=== PATIENT | male | born 1955 | race Caucasian/White ===

== ENCOUNTER 2019-05-16 09:07 | Outpatient (CLI) | payer BC ==
--- NOTE | 2019-05-16 10:13 | ULT ---
Abdominal ultrasound: 05/16/2019 HISTORY: Left-sided flank pain TECHNIQUE: Multiplanar grayscale sonographic imaging of the abdomen obtained. FINDINGS: Imaged pancreas grossly unremarkable, partially obscured by bowel gas. Imaged portions of t he IVC and aorta appear within normal limits, also partially obscured by bowel gas. There is no focal liver lesion or evidence of intrahepatic biliary dilatation. No gallbladder wall thickening or pericholecystic fluid. No gallstones are noted. The housecleaner rep orts a negative Sanchez's sign. The common bile duct measures 3 mm, within normal limits. The right kidney measures 12.0 cm in craniocaudal dimension. There is a lower pole right renal cyst m easuring 1.8 cm. No hydronephrosis noted on either side. Left kidney measures 10.3 cm in craniocaudal dimension. Spleen measures up to 10.3 cm, within normal limits. IMPRESSION: No acute findings.
== END 2019-05-16 09:08 | disposition home or self-care (01) ==
LOC: ULT 09:07
PROVIDERS: ATTEND Physician Assistant Medical
DX: R10.32 Left lower quadrant pain (principal)
CPT/HCPCS: 93975

== ENCOUNTER 2021-10-23 13:22 | Outpatient (CLI) | payer BC, MEDICARE | END 2021-10-23 13:23 | disposition home or self-care (01) | LOC: BICCT 13:22 | PROVIDERS: ATTEND Surgery | DX: M50.00 Cervical disc disorder with myelopathy, unspecified cervical region (principal); M48.02 Spinal stenosis, cervical region | CPT/HCPCS: 72125 ==

== ENCOUNTER 2021-11-19 11:37 | Outpatient (CLI) | payer BC, MEDICARE ==
[2021-11-19 13:46] LABS: Hemoglobin 15.3 g/dL (13.5-17.5); Mean Corpuscular HGB CONC 34.7 g/dL (32.0-36.0); Mean Corpuscular Hemoglobin 31.6 pg (27.0-33.0); Mean Corpuscular Volume 91.1 fl (81.2-95.1); Mean Platelet Volume 10.6 fl (7.4-10.4); Platelet Count 220 10x3/uL (150-450); RBC Distribution Width 15.3 % (11.5-14.5); Red Blood Cell (RBC) Count 4.84 10x6/uL (4.32-5.72); White Blood Cell (WBC) Count 5.5 10x3/uL (3.5-10.5)
[2021-11-19 13:57] LABS: PTT 26.8 sec (22.0-33.0); Prothrombin Time 10.6 sec (9.5-12.1)
[2021-11-19 14:00] LABS: Anion Gap 16 mmol/L (10-20); BUN (Urea Nitrogen) 13 mg/dL (8.4-25.7); Calc. Creatinine Clearance 0 mL/min (70-130); Calcium 9.9 mg/dL (7.8-10.44); Carbon Dioxide 26 mmol/L (23-31); Chloride 102 mmol/L (98-107); Estimated GFR 95; Glucose 105 mg/dL (80-115); Sodium 139 mmol/L (136-145)
== END 2021-11-19 11:38 | disposition home or self-care (01) ==
LOC: LABBT 11:37
PROVIDERS: ATTEND Surgery
DX: Z01.818 Encounter for other preprocedural examination (principal); M50.00 Cervical disc disorder with myelopathy, unspecified cervical region; M50.10 Cervical disc disorder with radiculopathy, unspecified cervical region; M48.02 Spinal stenosis, cervical region; Z20.822 Contact with and (suspected) exposure to COVID-19
CPT/HCPCS: 80048; 85027; 85610; 85730; 86850; 86900; 86901; 87811; 93005; 93010

== ENCOUNTER 2021-11-19 11:45 | Inpatient (IN) | payer BC, MEDICARE ==
[2021-11-19 13:46] LABS: Hemoglobin 15.3 g/dL (13.5-17.5); Mean Corpuscular HGB CONC 34.7 g/dL (32.0-36.0); Mean Corpuscular Hemoglobin 31.6 pg (27.0-33.0); Mean Corpuscular Volume 91.1 fl (81.2-95.1); Mean Platelet Volume 10.6 fl (7.4-10.4); Platelet Count 220 10x3/uL (150-450); RBC Distribution Width 15.3 % (11.5-14.5); Red Blood Cell (RBC) Count 4.84 10x6/uL (4.32-5.72); White Blood Cell (WBC) Count 5.5 10x3/uL (3.5-10.5)
[2021-11-19 13:57] LABS: PTT 26.8 sec (22.0-33.0); Prothrombin Time 10.6 sec (9.5-12.1)
[2021-11-19 14:00] LABS: Anion Gap 16 mmol/L (10-20); BUN (Urea Nitrogen) 13 mg/dL (8.4-25.7); Calc. Creatinine Clearance 0 mL/min (70-130); Calcium 9.9 mg/dL (7.8-10.44); Carbon Dioxide 26 mmol/L (23-31); Chloride 102 mmol/L (98-107); Estimated GFR 95; Glucose 105 mg/dL (80-115); Sodium 139 mmol/L (136-145)
[2021-11-20 11:49] VITALS: BMI 32.3
[2021-11-24] MEDS ORDERED: Bacitracin Zinc Ointment 30 gm TUBE ONE (09:23)
[2021-11-24] MEDS ORDERED: Thrombin 5000 UNITS/5 ML VIAL ONE (09:23)
[2021-11-24] MEDS ORDERED: Midazolam HCl 2 mg/2 ml Vial ONE (09:34)
[2021-11-24] MEDS ORDERED: fentaNYL Citrate/PF 100 MCG/2 ML SYRINGE ONE (09:34)
[2021-11-24] MEDS ORDERED: HYDROmorphone 2 MG/ML VIAL ONE ×2 (09:34→12:21)
[2021-11-24] MEDS ORDERED: CEFAZOLIN 2 GM VIAL ONE (09:36)
[2021-11-24] MEDS ORDERED: Sodium Chloride 0.9% 0 ML ONE (09:36)
[2021-11-24] MEDS ORDERED: Phenylephrine 10 MG/ML VIAL ONE (09:58)
[2021-11-24] MEDS ORDERED: Ondansetron PF 4 MG/2 ML Vial ONE (09:58)
[2021-11-24] MEDS ORDERED: ePHEDrine 50 MG/ML VIAL ONE (09:58)
[2021-11-24] MEDS ORDERED: Glycopyrrolate 0.2 MG/ML 5 ML SYRINGE ONE (09:58)
[2021-11-24] MEDS ORDERED: diphenhydrAMINE 50 MG/ML VIAL ONE (09:58)
[2021-11-24] MEDS ORDERED: Dexamethasone 20 MG/5 ML VIAL ONE (09:58)
[2021-11-24] MEDS ORDERED: PROPOFOL 200 MG/20 ML VIAL ONE (09:58)
[2021-11-24] MEDS ORDERED: Lidocaine 1% PF 5 ML VIAL ONE (09:58)
[2021-11-24] MEDS ORDERED: Rocuronium Bromide 10 MG/ML (10ML VIAL) ONE (09:58)
[2021-11-24] MEDS ORDERED: Rocuronium Bromide 50 MG/5 ML VIAL ONE ×2 (11:58→13:44)
[2021-11-24] MEDS ORDERED: Ondansetron PF 4 MG/2 ML Vial IVP PRN (15:39)
[2021-11-24] MEDS ORDERED: Acetaminophen 325 MG TAB PO PRN (15:39)
[2021-11-24] MEDS ORDERED: Chloraseptic Spray 180 ml Bottle PO PRN (15:40)
[2021-11-24] MEDS ORDERED: Promethazine HCl 12.5 MG in Sodium Chloride 0.9% 50 ML IVPB PRN (15:40)
[2021-11-24] MEDS ORDERED: Diazepam 5 MG TAB PO PRN (15:40)
[2021-11-24] MEDS ORDERED: Bisacodyl 5 MG TAB PO PRN (15:40)
[2021-11-24] MEDS ORDERED: Cepastat Lozenges 1 LOZ PO PRN (15:40)
[2021-11-24] MEDS ORDERED: Polyethylene Glycol 3350 17 GM Packet PO PRN (15:40)
[2021-11-24] MEDS ORDERED: fentaNYL Citrate/PF 2,000 MCG in Sodium Chloride 0.9% 60 ML IV PRN ×2 (15:42→16:37)
[2021-11-24] MEDS ORDERED: hydrALAZINE 20 MG/ML VIAL SLOW IVP PRN (15:44)
[2021-11-24] MEDS ORDERED: Promethazine HCl 25 MG/ML VIAL IVPB PRN (15:50)
[2021-11-24] MEDS ORDERED: Morphine Sulfate 2 MG/ML SYRINGE SLOW IVP PRN (15:50)
[2021-11-24] MEDS ORDERED: HYDROmorphone 2 MG/ML VIAL SLOW IVP PRN (15:50)
[2021-11-24] MEDS ORDERED: PACU-Morphine 4MG/ML VIAL SLOW IVP PRN (15:50)
[2021-11-24] MEDS ORDERED: Promethazine HCl 25 MG/ML VIAL IM PRN (15:50)
[2021-11-24] MEDS ORDERED: Ondansetron HCl/PF 4 MG/2 ML Vial IVP PRN (15:50)
[2021-11-24] MEDS ORDERED: Fentanyl 100 MCG/2 ML VIAL ONE ×2 (15:55→17:01)
[2021-11-24] MEDS: Sodium Chloride 0.9% 1,000 ML IV SCH (18:43)
[2021-11-24] MEDS: Docusate 100 MG CAP PO SCH (20:31)
[2021-11-24] MEDS: metFORMIN 500 MG TAB PO SCH (20:31)
[2021-11-24] MEDS: Montelukast Sodium 10 mg Tablet PO SCH (20:31)
[2021-11-24] MEDS: Atorvastatin Calcium 10 MG TAB PO SCH (20:31)
[2021-11-24] MEDS: CEFAZOLIN 2 GM in Sodium Chloride 0.9% 100 ML IVPB SCH (20:32)
[2021-11-25] MEDS: CEFAZOLIN 2 GM in Sodium Chloride 0.9% 100 ML IVPB SCH ×3 (01:09→17:56)
[2021-11-25] MEDS: Sodium Chloride 0.9% 1,000 ML IV SCH ×2 (05:25→14:40)
[2021-11-25 06:16] LABS: #Lymphocytes 0.6 thou/uL (1.20-3.40); %Basophils 0.1 % (0.0-1.0); %Eosinophils 0.1 % (0.0-10.0); %Lymphocytes 4.9 % (21.0-51.0); %Monocytes 7.9 % (0.0-10.0); Hemoglobin 12.5 g/dL (14.0-18.0); Mean Corpuscular Hemoglobin 31.3 pg (27.0-31.0); Mean Corpuscular Volume 94.8 fL (78.0-98.0); Mean Platelet Volume 8.2 fL (7.4-10.4); Platelet Count 168 thou/uL (130-400); RBC Distribution Width 13.5 % (11.5-14.5); Red Blood Cell (RBC) Count 3.99 mill/uL (4.70-6.10); White Blood Cell (WBC) Count 12.6 thou/uL (4.8-10.8)
[2021-11-25 06:36] LABS: Anion Gap 13 mmol/L (10-20); BUN (Urea Nitrogen) 9 mg/dL (8.4-25.7); Calc. Creatinine Clearance 123 mL/min (70-130); Carbon Dioxide 24 mmol/L (23-31); Chloride 103 mmol/L (98-107); Sodium 136 mmol/L (136-145)
[2021-11-25 06:37] LABS: Calcium 8.3 mg/dL (7.8-10.44); Estimated GFR 99; Glucose 202 mg/dL (80-115)
[2021-11-25] MEDS ORDERED: Morphine 2 MG/ML VIAL SLOW IVP PRN (09:06)
[2021-11-25] MEDS ORDERED: traMADol HCl 50 MG TAB PO PRN (09:06)
[2021-11-25] MEDS ORDERED: Scopolamine 1.5 mg/72 hour Patch TD SCH (09:15)
[2021-11-25] MEDS: metFORMIN 500 MG TAB PO SCH (09:41)
[2021-11-25] MEDS: FLUoxetine HCl 20 MG CAP PO SCH (09:41)
[2021-11-25] MEDS: Docusate 100 MG CAP PO SCH ×2 (09:41→20:42)
[2021-11-25] MEDS: Lisinopril/Hydrochlorothiazide 20 mg/12.5 mg Tablet PO SCH (09:41)
[2021-11-25] MEDS ORDERED: Dextrose 50% Abboject 50 ML SYRINGE SLOW IVP PRN (10:31)
[2021-11-25] MEDS ORDERED: HumaLOG 300 UNITS/3 ML VIAL SC PRN ×2 (10:31)
[2021-11-25] MEDS ORDERED: Dextrose 5% in Water 1,000 ML IV PRN (10:31)
[2021-11-25] MEDS ORDERED: HYDROcodone/Acetaminophen 10/325 mg Tablet PO PRN (10:49)
[2021-11-25 11:34] LABS: Glucose 183 mg/dL (80-115)
[2021-11-25] MEDS: Ketorolac Tromethamine 30 MG/ML VIAL IVP PRN ×2 (11:39→17:56)
[2021-11-25] MEDS: HYDROcodone/Acetaminophen 7.5/325 mg Tablet PO PRN ×2 (14:45→20:41)
[2021-11-25 17:31] LABS: Glucose 150 mg/dL (80-115)
[2021-11-25 17:34] LABS: Bacteria/HPF None Seen HPF (None Seen); Bilirubin Negative (Negative); Blood, Urine 1+ (Negative); Clarity Clear (Clear); Glucose, Urine (Dipstick) 50 mg/dL (Negative); Ketone, Urine Trace mg/dL (Negative); Leukocyte 75 Leu/uL (Negative); Nitrite Negative (Negative); Protein, Urine (Dipstick) 50 mg/dL (Neg-Trace); Specific Gravity, Urine 1.038 (1.002-1.036); Squamous Epithelial 0-3 HPF (0-3); Urobilinogen Normal mg/dL (Less than 2)
[2021-11-25] MEDS: Atorvastatin Calcium 10 MG TAB PO SCH (20:42)
[2021-11-25] MEDS: Montelukast Sodium 10 mg Tablet PO SCH (20:42)
[2021-11-26] MEDS: CEFAZOLIN 2 GM in Sodium Chloride 0.9% 100 ML IVPB SCH ×3 (02:29→17:37)
[2021-11-26] MEDS: HYDROcodone/Acetaminophen 7.5/325 mg Tablet PO PRN ×4 (05:59→20:26)
[2021-11-26] MEDS: Docusate 100 MG CAP PO SCH ×2 (08:12→20:22)
[2021-11-26] MEDS: FLUoxetine HCl 20 MG CAP PO SCH (08:12)
[2021-11-26] MEDS: Lisinopril/Hydrochlorothiazide 20 mg/12.5 mg Tablet PO SCH (08:12)
[2021-11-26 08:51] LABS: #Lymphocytes 0.9 thou/uL (1.20-3.40); #Neutrophils 7.8 thou/uL (1.40-6.50); %Basophils 0.1 % (0.0-1.0); %Eosinophils 0.3 % (0.0-10.0); %Lymphocytes 9.5 % (21.0-51.0); %Monocytes 10.4 % (0.0-10.0); %Neutrophils 79.7 % (42.0-75.0); Hemoglobin 11.2 g/dL (14.0-18.0); Mean Corpuscular HGB CONC 32.5 g/dL (32.0-36.0); Mean Corpuscular Hemoglobin 30.8 pg (27.0-31.0); Mean Corpuscular Volume 94.7 fL (78.0-98.0); Platelet Count 139 thou/uL (130-400); RBC Distribution Width 13.4 % (11.5-14.5); Red Blood Cell (RBC) Count 3.63 mill/uL (4.70-6.10); White Blood Cell (WBC) Count 9.8 thou/uL (4.8-10.8)
[2021-11-26 16:00] LABS: Hemoglobin A1c 6.2 % (4.0-6.0)
[2021-11-26] MEDS: Montelukast Sodium 10 mg Tablet PO SCH (20:22)
[2021-11-26] MEDS: Atorvastatin Calcium 10 MG TAB PO SCH (20:26)
[2021-11-27] MEDS: CEFAZOLIN 2 GM in Sodium Chloride 0.9% 100 ML IVPB SCH ×2 (01:48→09:31)
[2021-11-27] MEDS: HYDROcodone/Acetaminophen 7.5/325 mg Tablet PO PRN ×4 (01:54→19:29)
[2021-11-27] MEDS: FLUoxetine HCl 20 MG CAP PO SCH (08:37)
[2021-11-27] MEDS: Lisinopril/Hydrochlorothiazide 20 mg/12.5 mg Tablet PO SCH (08:37)
[2021-11-27] MEDS: Docusate 100 MG CAP PO SCH (08:37)
[2021-11-27 21:10] VITALS: BP 146/81; TEMP 97.1
== END 2021-11-27 21:16 | DRG 454 ==
LOC: SURG A 11-24 07:33 → T4-A 11-24 18:32
PROVIDERS: ADMIT Surgery; ATTEND Internal Medicine
PROC: 0RG20A0 Fusion of 2 or more Cervical Vertebral Joints with Interbody Fusion Device, Anterior Approach, Anterior Column, Open Approach (ICD-10-PCS; principal; 2021-11-24)
PROC: 0RG2071 Fusion of 2 or more Cervical Vertebral Joints with Autologous Tissue Substitute, Posterior Approach, Posterior Column, Open Approach (ICD-10-PCS; 2021-11-24)
PROC: 0RB30ZZ Excision of Cervical Vertebral Disc, Open Approach (ICD-10-PCS; 2021-11-24)
PROC: 01N10ZZ Release Cervical Nerve, Open Approach (ICD-10-PCS; 2021-11-24)
DX: M48.02 Spinal stenosis, cervical region (principal); G95.89 Other specified diseases of spinal cord; M50.01 Cervical disc disorder with myelopathy, high cervical region; Z20.822 Contact with and (suspected) exposure to COVID-19; E11.43 Type 2 diabetes mellitus with diabetic autonomic (poly)neuropathy; K31.84 Gastroparesis; I10 Essential (primary) hypertension; D64.9 Anemia, unspecified; D72.829 Elevated white blood cell count, unspecified; F41.9 Anxiety disorder, unspecified; F32.A Depression, unspecified; R13.10 Dysphagia, unspecified; M50.11 Cervical disc disorder with radiculopathy, high cervical region; E66.9 Obesity, unspecified; E78.5 Hyperlipidemia, unspecified; Z88.6 Allergy status to analgesic agent; Z79.82 Long term (current) use of aspirin; Z79.899 Other long term (current) drug therapy; Z79.84 Long term (current) use of oral hypoglycemic drugs; Z98.1 Arthrodesis status; Z82.49 Family history of ischemic heart disease and other diseases of the circulatory system; Z68.32 Body mass index [BMI] 32.0-32.9, adult; Z90.89 Acquired absence of other organs; Z80.42 Family history of malignant neoplasm of prostate; Z80.1 Family history of malignant neoplasm of trachea, bronchus and lung
CPT/HCPCS: 36415; 36416; 71045; 76000; 80048; 81001; 83036; 85025; 85027; 85610; 85730; 86850; 86900; 86901; 87811; 93970; C1713; C1768; J0690; J1100; J1170; J1200; J1885; J2250; J2370; J2405; J2550; J2704; J2710; J3010; J3370; J3490; J7050

== ENCOUNTER 2022-01-06 13:28 | Outpatient (CLI) | payer MEDICARE, BC | END 2022-01-06 13:29 | disposition home or self-care (01) | LOC: TBSIIMAG 13:28 | PROVIDERS: ATTEND Physician Assistant | DX: M48.02 Spinal stenosis, cervical region (principal); Z98.1 Arthrodesis status | CPT/HCPCS: 72040 ==

== ENCOUNTER 2022-07-30 11:40 | Emergency (ER) | payer OTHER, MEDICARE ==
[2022-07-30] MEDS ORDERED: Boostrix 0.5 ML (Tdap) VIAL (>/=7 yrs of age) ONE (12:29)
[2022-07-30] MEDS ORDERED: Amoxicillin/Potassium Clav 875 MG TAB ONE (12:29)
[2022-07-30] MEDS ORDERED: Bacitracin 1 PK ONE (12:31)
== END 2022-07-30 12:48 | disposition home or self-care (01) ==
LOC: ERS 11:40
DX: S61.251A Open bite of left index finger without damage to nail, initial encounter (principal); E11.9 Type 2 diabetes mellitus without complications; E78.5 Hyperlipidemia, unspecified; I10 Essential (primary) hypertension; Z23 Encounter for immunization; W54.0XXA Bitten by dog, initial encounter
CPT/HCPCS: 90471; 90715

== ENCOUNTER 2022-08-05 08:58 | Outpatient (CLI) | payer MEDICARE, BC | END 2022-08-05 08:59 | disposition home or self-care (01) | LOC: TBSIIMAG 08:58 | PROVIDERS: ATTEND Family Medicine | DX: M48.062 Spinal stenosis, lumbar region with neurogenic claudication (principal); M51.36 Other intervertebral disc degeneration, lumbar region; M47.816 Spondylosis without myelopathy or radiculopathy, lumbar region; K60.2 Anal fissure, unspecified | CPT/HCPCS: 72148 ==

== ENCOUNTER 2025-02-22 13:03 | Outpatient (CLI) | payer MEDICARE | END 2025-02-22 13:04 | disposition home or self-care (01) | LOC: MRI 13:03 | PROVIDERS: ATTEND Family Medicine | DX: M25.561 Pain in right knee (principal); R60.0 Localized edema; S83.241A Other tear of medial meniscus, current injury, right knee, initial encounter; M94.8X6 Other specified disorders of cartilage, lower leg; W18.30XA Fall on same level, unspecified, initial encounter | CPT/HCPCS: 76014 ==